=== PATIENT | female | born 1995 | race Caucasian/White ===

== ENCOUNTER 2021-05-28 20:03 | Emergency (ER) | payer MEDICAID ==
[~2021-05-28] VITALS: Ht 170.2 cm; Wt 132.0 kg
[2021-05-28] MEDS ORDERED: ACETAMINOPHEN 325MG TABLET PO STA (21:05)
[2021-05-28 21:24] LABS: BASOPHILS % 0.2 % (0.0-2.0); EOSINOPHILS % 0.4 % (0.0-5.0); HEMATOCRIT. 29.5 % (36.0-48.0); HEMOGLOBIN. 10.1 g/dL (12.0-16.0); MEAN CORPUSCULAR HEMOGLOBIN 30.7 pg (28.0-32.0); MEAN CORPUSCULAR VOLUME 89.1 fL (81.0-99.0); MEAN PLATELET VOLUME 7.7 fl (7.4-10.4); MONOCYTES % 4.9 % (2.0-8.0); NEUTROPHILS % 83.5 % (40.0-76.0); PLATELET 280 x1000/uL (130-400); RED BLOOD CELL COUNT 3.31 mill/uL (4.2-5.4); RED CELL DISTRIBUTION WIDTH 13.3 % (11.6-14.6)
[2021-05-28 21:31] LABS: CHLORIDE 109 mEq/L (98-107)
[2021-05-28] MEDS ORDERED: LIDOCAINE HCL/EPINEPHRINE 1%-EPI 1:100,000 20 ML VIAL INFIL ONE (23:00)
[2021-05-29] MEDS ORDERED: CEPH500T MT (00:22)
[2021-05-29] MEDS ORDERED: ACET-2708 MT (00:23)
[2021-05-29 00:59] VITALS: BP 120/76
== END 2021-05-29 01:00 | disposition home or self-care (01) ==
LOC: ER 20:03
DX: R07.9 Chest pain, unspecified (principal); L02.211 Cutaneous abscess of abdominal wall; I10 Essential (primary) hypertension
CPT/HCPCS: 10060; 36415; 71045; 80053; 83880; 84484; 85025; 93005; 99285; J3490

== ENCOUNTER 2021-05-31 08:08 | Emergency (ER) | payer MEDICAID ==
[~2021-05-31] VITALS: Ht 162.6 cm; Wt 130.0 kg
[~2021-05-31 08:08] MED LIST: ACET-2708 MT; CEPH500T MT
[2021-05-31 08:32] VITALS: BP 99/62
== END 2021-05-31 09:26 | disposition home or self-care (01) ==
LOC: ER 08:08
DX: Z48.00 Encounter for change or removal of nonsurgical wound dressing (principal); I10 Essential (primary) hypertension
CPT/HCPCS: 99282; Z7610; 99281

== ENCOUNTER 2021-06-03 09:27 | Emergency (ER) | payer MEDICAID ==
[~2021-06-03] VITALS: Ht 162.6 cm; Wt 130.0 kg
[2021-06-03 09:46] VITALS: BP 116/67
== END 2021-06-03 10:40 | disposition home or self-care (01) ==
LOC: ER 09:27
DX: L02.211 Cutaneous abscess of abdominal wall (principal); I10 Essential (primary) hypertension; Z79.899 Other long term (current) drug therapy
CPT/HCPCS: 99281

== ENCOUNTER 2022-09-18 00:38 | Inpatient (IN) | payer MEDICARE ==
[~2022-09-18] VITALS: Ht 157.5 cm; Wt 126.7 kg
[2022-09-18] MEDS ORDERED: SODIUM CHLORIDE 0.9% 1,000 ML IV ONE (00:45)
[2022-09-18] MEDS ORDERED: MORPHINE SULFATE 4 MG/ML CPJ (NOT FOR IM USE) IV STA (00:45)
[2022-09-18] MEDS ORDERED: MAGNESIUM/ALUMINUM HYDROXIDE/SIMETHICONE 30ML UDC PO STA (00:45)
[2022-09-18] MEDS ORDERED: ONDANSETRON HCL 4MG/2ML INJ IV STA (00:45)
[2022-09-18 01:30] LABS: BASOPHILS % 0.2 % (0.0-2.0); EOSINOPHILS % 1.7 % (0.0-5.0); HEMOGLOBIN. 12.2 g/dL (12.0-16.0); LYMPHOCYTES % 12.9 % (20.0-50.0); MEAN CORPUSCULAR HEMOGLOBIN 28.2 pg (28.0-32.0); MEAN CORPUSCULAR VOLUME 85.5 fL (81.0-99.0); MEAN PLATELET VOLUME 7.7 fl (7.4-10.4); MONOCYTES % 4.5 % (2.0-8.0); NEUTROPHILS % 80.7 % (40.0-76.0); PLATELET 346 x1000/uL (130-400); RED BLOOD CELL COUNT 4.33 mill/uL (4.2-5.4); RED CELL DISTRIBUTION WIDTH 13.7 % (11.6-14.6)
[2022-09-18 01:43] LABS: CHLORIDE 109 mEq/L (98-107); PROTHROMBIN TIME 10.8 sec (9.6-11.0)
[2022-09-18 01:52] LABS: ETHANOL BLOOD < 10 mg/dL
[2022-09-18 02:40] LABS: CLARITY URINE TURBID (CLEAR); COLOR URINE YELLOW (YELLOW); KETONES URINE NEGATIVE (NEGATIVE); LEUKOCYTE ESTERASE URINE 2+ (NEGATIVE); NITRITE URINE NEGATIVE (NEGATIVE); OCCULT BLOOD URINE 1+ (NEGATIVE); PH URINE 7.5 (4.5-8.0); PROTEIN URINE NEGATIVE (NEGATIVE); SPECIFIC GRAVITY URINE 1.018 (1.005-1.030)
[2022-09-18 02:59] LABS: *AMPHETAMINES SCREEN URINE NEGATIVE (NEGATIVE); *BARBITURATES SCREEN URINE NEGATIVE (NEGATIVE); *BENZODIAZEPINES SCREEN URINE NEGATIVE (NEGATIVE); *COCAINE SCREEN URINE NEGATIVE (NEGATIVE); CANNABINOID URINE SCREEN NEGATIVE (NEGATIVE); METHADONE URINE SCREEN NEGATIVE (NEGATIVE); OPIATES URINE SCREEN NEGATIVE (NEGATIVE); PHENCYCLIDINE URINE SCREEN NEGATIVE (NEGATIVE)
[2022-09-18] MEDS ORDERED: MORPHINE SULFATE 4 MG/ML CPJ (NOT FOR IM USE) IV NR (03:00)
[2022-09-18] MEDS ORDERED: MAGNESIUM/ALUMINUM HYDROXIDE/SIMETHICONE 30ML UDC PO NR (03:15)
[2022-09-18] MEDS ORDERED: PIPERACILLIN/TAZOBACTAM 3.375GM/50ML PREMIX IV NR (03:15)
[2022-09-18] MEDS ORDERED: ONDANSETRON HCL 4MG/2ML INJ IV NR (03:15)
[2022-09-18] MEDS ORDERED: CLONIDINE 0.1MG TABLET PO PRN (09:45)
[2022-09-18] MEDS ORDERED: CEFTRIAXONE 1 G PREMIX 50 ML IV SCH (09:45)
[2022-09-18] MEDS ORDERED: ONDANSETRON HCL 4MG/2ML INJ IV PRN (09:45)
[2022-09-18] MEDS ORDERED: IPRATROPIUM/ALBUTEROL 0.5-3(2.5)MG/3ML NEB HHN PRN (09:45)
[2022-09-18] MEDS ORDERED: DIPHENHYDRAMINE 50MG/ML VIAL IV PRN (09:45)
[2022-09-18] MEDS ORDERED: ACETAMINOPHEN 325MG TABLET PO PRN (09:45)
[2022-09-18] MEDS ORDERED: MORPHINE SULFATE 2 MG/ML CPJ (NOT FOR IM USE) IV PRN (09:45)
[2022-09-18] MEDS ORDERED: SODIUM CHLORIDE 0.9% 1,000 ML IV SCH (09:45)
[2022-09-18] MEDS ORDERED: IPRATROPIUM BROMIDE (0.02%) 0.5MG/2.5ML NEB HHN PRN (10:00)
[2022-09-18] MEDS ORDERED: ALBUTEROL (0.083%) 2.5MG/3ML NEB HHN PRN (10:00)
[2022-09-18 10:38] VITALS: BP 124/80
[2022-09-18] MEDS ORDERED: CEFTRIAXONE 1,000 MG in DEXTROSE 5% WATER 50 ML IV SCH (11:00)
[2022-09-18 12:00] VITALS: BP 135/81
[2022-09-18 16:00] VITALS: BP 148/82
[2022-09-18 18:49] VITALS: BP 148/82
== END 2022-09-18 19:35 | disposition home or self-care (01) | DRG 561 ==
LOC: ER 00:38 → 6EST 05:48
PROVIDERS: ADMIT Internal Medicine; ATTEND Internal Medicine
DX: O99.63 Diseases of the digestive system complicating the puerperium (principal); K80.00 Calculus of gallbladder with acute cholecystitis without obstruction; I10 Essential (primary) hypertension; Z39.2 Encounter for routine postpartum follow-up
CPT/HCPCS: 36415; 71045; 76705; 80053; 80305; 80320; 81003; 85025; 93005; 93970; 99285; J0696; J2270; J2405; J2543; J7030; J7060; G0480

== ENCOUNTER 2022-11-07 22:16 | Emergency (ER) | payer MEDICARE ==
[~2022-11-07] VITALS: Ht 162.6 cm; Wt 127.0 kg
[2022-11-07 22:27] VITALS: BP 177/96
[2022-11-07 23:27] LABS: CLARITY URINE CLOUDY (CLEAR); COLOR URINE YELLOW (YELLOW); KETONES URINE TRACE (NEGATIVE); LEUKOCYTE ESTERASE URINE 2+ (NEGATIVE); NITRITE URINE NEGATIVE (NEGATIVE); OCCULT BLOOD URINE 3+ (NEGATIVE); PH URINE 6.5 (4.5-8.0); PROTEIN URINE TRACE (NEGATIVE); SPECIFIC GRAVITY URINE 1.023 (1.005-1.030); UROBILINOGEN URINE 0.2 E.U./dL (0.2-1.0)
[2022-11-07 23:34] LABS: BASOPHILS % 0.3 % (0.0-2.0); EOSINOPHILS % 0.9 % (0.0-5.0); HEMATOCRIT. 38.5 % (36.0-48.0); HEMOGLOBIN. 13.2 g/dL (12.0-16.0); LYMPHOCYTES % 21.8 % (20.0-50.0); MEAN CORPUSCULAR HEMOGLOBIN 28.4 pg (28.0-32.0); MEAN CORPUSCULAR VOLUME 82.6 fL (81.0-99.0); MONOCYTES % 4.7 % (2.0-8.0); NEUTROPHILS % 72.3 % (40.0-76.0); PLATELET 330 x1000/uL (130-400); RED BLOOD CELL COUNT 4.66 mill/uL (4.2-5.4); RED CELL DISTRIBUTION WIDTH 14.5 % (11.6-14.6)
[2022-11-07 23:50] LABS: HCG SCREEN NEGATIVE
[2022-11-08 00:02] LABS: CHLORIDE 107 mEq/L (98-107)
[2022-11-08] MEDS ORDERED: ONDANSETRON HCL 4MG/2ML INJ IV STA (01:08)
[2022-11-08] MEDS ORDERED: KETOROLAC 30MG/ML VIAL IV STA (01:08)
[2022-11-08] MEDS ORDERED: SODIUM CHLORIDE 0.9% 1,000 ML IV ONE (01:15)
[2022-11-08] MEDS ORDERED: TRAM-529 MT (06:41)
[2022-11-08] MEDS ORDERED: NAPR-681 PO (06:41)
[2022-11-08] MEDS ORDERED: FAMO20TA8 PO (06:41)
[2022-11-08] MEDS ORDERED: CEPH500C2 MT (06:44)
== END 2022-11-08 06:59 | disposition home or self-care (01) ==
LOC: ER 22:16
DX: K80.20 Calculus of gallbladder without cholecystitis without obstruction (principal); K76.0 Fatty (change of) liver, not elsewhere classified
CPT/HCPCS: 36415; 71045; 76705; 76770; 80053; 81003; 83690; 84703; 85025; 96361; 96374; 96375; 99285; J1885; J2405; J7030; Z7610